=== PATIENT | male | born 1950 | race Caucasian/White ===

== ENCOUNTER → 2025-04-17 07:45 | Outpatient (REF) | payer MEDICARE, OTHER, SELFPAY | LOC: RCS 07:45 | PROVIDERS: ATTENDING PHYSICIAN Internal Medicine Cardiovascular Disease; FAMILY PHYSICIAN Internal Medicine | DX: I10 Essential (primary) hypertension (principal); I49.3 Ventricular premature depolarization | CPT/HCPCS: 93306 ==